=== PATIENT | male | born 1985 | race Caucasian/White ===

== ENCOUNTER 2020-04-16 02:52 | Emergency (ER) | payer MEDICAID ==
[~2020-04-16] VITALS: Ht 177.8 cm; Wt 97.5 kg
[2020-04-16] MEDS ORDERED: LORAZEPAM INJ 2 MG/ML VIAL IM ONE (03:00)
[2020-04-16] MEDS ORDERED: LORAZEPAM INJ 2 MG/ML VIAL ONE (03:01)
[2020-04-16] MEDS ORDERED: diphenhydrAMINE HCL 50 MG/ML VIAL ONE (03:15)
[2020-04-16] MEDS ORDERED: HALOPERIDOL LACTATE INJ 5 MG/ML VIAL ONE (03:15)
[2020-04-16] MEDS ORDERED: diphenhydrAMINE HCL 50 MG/ML VIAL IM ONE (03:30)
[2020-04-16] MEDS ORDERED: HALOPERIDOL LACTATE INJ 5 MG/ML VIAL IM ONE (03:30)
[2020-04-16 21:14] VITALS: BP 134/89
== END 2020-04-16 21:14 | disposition home or self-care (01) ==
LOC: ER 02:55
DX: F15.10 Other stimulant abuse, uncomplicated (principal); F41.9 Anxiety disorder, unspecified; R45.1 Restlessness and agitation
CPT/HCPCS: 80307; 82962; 96372 ×2; 99285; J1200; J1630; J2060